=== PATIENT | male | born 1980 | race Caucasian/White ===

== ENCOUNTER 2019-12-26 00:22 | Inpatient (IN) | payer BC, MEDICARE, SELFPAY ==
[~2019-12-26] VITALS: Ht 175.3 cm; Wt 89.5 kg
[2019-12-26 01:28] LABS: HEMATOCRIT 48.9 % (42.0-52.0); HEMOGLOBIN 16.4 g/dl (13.5-17.5); MEAN CORPUSCULAR HEMOGLOBIN 31.2 pg (27.0-33.0); MEAN CORPUSCULAR HGB CONC 33.5 g/dl (32.0-36.5); MEAN CORPUSCULAR VOLUME 93.1 fl (80.0-96.0); PLATELET COUNT, AUTOMATED 157 10^3/uL (150-450); RED BLOOD COUNT 5.25 10^6/uL (4.30-6.10); WHITE BLOOD COUNT 12.1 10^3/uL (4.0-10.0)
[2019-12-26 01:43] LABS: AMPHETAMINES LEVEL URINE NEGATIVE (NEGATIVE); BARBITURATES URINE NEGATIVE (NEGATIVE); BENZODIAZEPINES URINE NEGATIVE (NEGATIVE); CANNABINOIDS URINE NEGATIVE (NEGATIVE); COCAINE METABOLITE URINE NEGATIVE (NEGATIVE); METHADONE URINE NEGATIVE (NEGATIVE); OPIATES URINE NEGATIVE (NEGATIVE); PHENCYCLIDINE URINE NEGATIVE (NEGATIVE)
[2019-12-26 02:03] LABS: ACETAMINOPHEN LEVEL < 2.0 UG/ML (10.0-30.0); ALBUMIN 3.9 GM/DL (3.2-5.2); ALT/SGPT 69 U/L (12-78); BILIRUBIN,DIRECT 0.1 MG/DL (0.0-0.2); BILIRUBIN,TOTAL 0.3 MG/DL (0.2-1.0); BLOOD UREA NITROGEN 9 MG/DL (7-18); CALCIUM LEVEL 8.3 MG/DL (8.5-10.1); CARBON DIOXIDE LEVEL 23 MEQ/L (21-32); CHLORIDE LEVEL 111 MEQ/L (98-107); CREATININE FOR GFR 0.78 MG/DL (0.70-1.30); ETHYL ALCOHOL (ETHANOL) 0.261 % (0.000-0.010); GLOMERULAR FILTRATION RATE > 60.0 (>60); GLUCOSE, FASTING 98 MG/DL (70-100); POTASSIUM SERUM 3.7 MEQ/L (3.5-5.1); SALICYLATE LEVEL 5.1 MG/DL (5.0-30.0); SODIUM LEVEL 142 MEQ/L (136-145); THYROID STIMULATING HORMONE 0.544 uIU/ML (0.358-3.740); TOTAL PROTEIN 7.6 GM/DL (6.4-8.2)
[2019-12-26] MEDS: LORazepam 2 MG TAB PO PRN ×2 (08:27→18:09)
[2019-12-26] MEDS ORDERED: ACETAMINOPHEN 325 MG TAB PO ONE (08:45)
[2019-12-26] MEDS ORDERED: MULTIVITAMINS/MINERALS THERAP 1 TAB PO SCH (09:00)
[2019-12-26] MEDS ORDERED: THIAMINE 100 MG TAB PO SCH ×2 (09:00→15:40)
[2019-12-26] MEDS ORDERED: FOLIC ACID 1 MG TAB PO SCH (09:00)
[2019-12-26] MEDS ORDERED: NAPR-885 PO (14:10)
[2019-12-26] MEDS ORDERED: FLUO10CA15 PO (14:10)
[2019-12-26] MEDS ORDERED: IBUPROFEN 400 MG TAB PO PRN (15:30)
[2019-12-26] MEDS ORDERED: OLANZapine ORAL DISINTEGRATING TAB 5MG PO PRN (15:30)
[2019-12-26] MEDS ORDERED: traZODone 50 MG TAB PO PRN (15:30)
[2019-12-26] MEDS ORDERED: NICOTINE 21MG/24HR 1 EA TRANSDERMAL TD ONE (15:30)
[2019-12-26] MEDS ORDERED: MOM 30ML SUSPENSION UDC PO PRN (15:30)
[2019-12-26] MEDS ORDERED: MAALOX 30 ML SUSP *UDC PO PRN (15:30)
[2019-12-26 17:39] VITALS: BP 148/77
[2019-12-26 17:44] VITALS: BP 148/77
[2019-12-26] MEDS: THIAMINE 100 MG TAB PO SCH (20:03)
[2019-12-26 20:38] VITALS: BP 150/94
[2019-12-27] VITALS (7 sets, daily range): BP systolic 110–174; BP diastolic 71–92
[2019-12-27] MEDS: THIAMINE 100 MG TAB PO SCH ×2 (08:11→21:14)
[2019-12-27] MEDS: FOLIC ACID 1 MG TAB PO SCH (08:11)
[2019-12-27] MEDS: MULTIVITAMINS/MINERALS THERAP 1 TAB PO SCH (08:11)
[2019-12-27] MEDS: NICOTINE 21MG/24HR 1 EA TRANSDERMAL TD SCH (08:51)
[2019-12-27] MEDS: LORazepam 2 MG TAB PO PRN ×3 (08:51→17:52)
[2019-12-27] MEDS ORDERED: OXcarbazepine 300MG 5ML SUSP ORAL SYRINGE *DRAW UP EXACT DOSE PO SCH (10:15)
[2019-12-27] MEDS: FLUoxetine 10 MG CAP PO SCH (11:43)
[2019-12-27] MEDS: NALTREXONE 50 MG TAB PO SCH (11:43)
--- NOTE | 2019-12-27 16:35 | HPEPDOC ---
General Date of Admission Dec 26, 2019 at 15:20 Date of Service: Dec 27, 2019 Chief Complaint The patient is a 39-year-old male admitted with a reason for visit of Unspecified Psychotic Disorder. Source: Patient Exam Limitations: No limitations Associated Symptoms: Denies Symptoms History of Present Illness 39-year-old male with past medical history of anxiety presents to [facility] for evaluation of an unspecified chronic disorder with hallucinations. Hospitalist called for medical clearance prior to admission. Patient reports that he is feeling well. He's had no recent fevers, chills, shortness of breath, chest pain, abdominal pain, nausea, vomiting. He currently takes only fluoxetine for his anxiety and naproxen as needed for chronic back pain. Denies any recent illnesses or sick contacts or travel history. Patient is a heavy drinker averaging 6-12 beers per day. He also smokes very heavily 2 packs per day for the past 17 years. Patient knows that he is in the psychiatric cueva for evaluation of hallucinations. She has no other complaints at this time. Home Medications Scheduled Fluoxetine Hcl (Fluoxetine HCl) 10 Mg Capsule, 10 MG PO DAILY, (Reported) PATIENT STATES HE'S STILL TAKING- HASNT FILLED SINCE 03/06/2019 Scheduled PRN Naproxen (Naproxen) 500 Mg Tablet, 500 MG PO BID PRN for PAIN, (Reported) Allergies Coded Allergies: No Known Allergies (Unverified , 12/26/19) Past Medical History Medical History Anxiety Alcohol use disorder Nicotine dependence Chronic back pain Surgical History Multiple orthopedic surgeries on his back, wrist, forearms Family History Father is a diabetic Mother has anxiety and hypertension Social History * Smoker: current smoker, greater than 1 pack/day (2 packs per day for the past 17 years), cigarettes Alcohol: heavy (6-12 beers per night) Drugs: denies Recent Travel/Sick Contacts: Denies: Recent travel, Recent sick contacts Psychosocial History: Anxiety, Suicidal thoughts Was living independently in his apartment. Currently living with his parents. 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 Dyspnea, Lt Headedness Gastrointestinal: Denies: Nausea, Vomiting, Abdominal Pain, Diarrhea Genitourinary: Denies: Dysuria, Frequency, Incontinence, Retention Hematologic: Denies: Bruising, Bleeding Excessively Musculoskeletal: Denies: Neck Pain, Back Pain, Joint Pain, Muscle Pain, Spasms Neurological: Denies: Weakness, Numbness, Change in speech, Confusion Psych: Reports: Mood Normal; Denies: Depression, Memory Issues Physical Examination General Exam: Positive: Alert, Cooperative, No Acute Distress Eye Exam: Positive: PERRLA, Conjunctiva & lids normal, EOMI, Sclera icteric ENT Exam: Positive: Atraumatic, Mucous membr. moist/pink, Pharynx Normal Neck Exam: Positive: Supple; Negative: JVD, thyromegaly Chest Exam: Positive: Clear to auscultation, Normal air movement; Negative: Rales, Rhonchi, Wheezing Heart Exam: Positive: Rate Normal, Regular Rhythm, Normal S1, Normal S2; Negative: Gallops, Murmurs Abdomen Exam: Positive: Normal bowel sounds, Soft; Negative: Tenderness, Hepatospenomegaly Extremity Exam: Positive: Normal pulses; Negative: Clubbing, Cyanosis, Edema Skin Exam: Positive: Nl turgor and temperature; Negative: Rash, Breakdown Neuro Exam: Positive: Normal Gait, Normal Speech, Strength at 5/5 X4 ext, Normal Tone, Sensation Intact Psych Exam: Positive: Mental status NL, Mood NL Vital Signs Vital Signs Date Time Temp Pulse Resp B/P (MAP) Pulse Ox O2 Delivery O2 Flow Rate FiO2 12/27/19 13:21 100 174/92 12/27/19 06:43 98.3 18 99 Room Air 12/26/19 04:00 Assessment/Plan 39-year-old male was admitted to the inpatient psych unit for evaluation of hallucinations and unspecified psychotic disorder. Currently patient feels well and has no complaints at this time. Laboratory work was reviewed and shows no g ross abnormalities. Patient is however hypertensive which may be related to possible withdrawal-like symptoms. Patient appears calm at this time this last drink being approximate 48 hours prior. Patient will need to be monitored closely for the next 3 days for withdrawal-like symptoms. Once patient is out of the withdrawal window, if he is still hypertensive, patient may benefit from starting a blood pressure medication. Currently, patient has no contraindications to psychiatric treatment at this time medically. Please reconsult hospitalist service as needed if you have any questions. Thank you for allowing me to see your patient. Plan / VTE VTE Prophylaxis Ordered?: No VTE Exclusion Mechanical Proph: Low Risk for VTE VTE Exclusion Pharmacological: At Low Risk for VTE Plan Plan Hypertension Patient is hypertensive for most of the day. May be related to possible alcohol withdrawal symptoms although he appeared to be very calm during the interview. Withdrawal window is complete, we will reassess the need for antihypertensive agent. - Monitor for withdrawal symptoms - Will hold off on antihypertensive until withdrawal window is closed Alcohol dependence and abuse Patient drinks significant amount of alcohol. Denies any history of seizures in the past. - Continue with alcohol withdrawal protocol for the next 72 hours - Lorazepam 2 mg every 2 hours as needed for withdrawal symptoms - The patient requires more Ativan than is prescribed at this time, please reconsult hospitalist service for further intervention Nicotine dependence Patient is a heavy smoker. Requesting nicotine patches - Nicotine 21 mg patch when necessary Please reconsult hospitalist service as needed. Thank you so much for this most interesting consult. COURTNEY FRAZIER MD Dec 27, 2019 16:35
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
[2019-12-27] MEDS: OXcarbazepine 150 MG TAB PO SCH (21:22)
[2019-12-28 06:00] VITALS: BP 154/88
[2019-12-28] MEDS: NALTREXONE 50 MG TAB PO SCH (08:13)
[2019-12-28] MEDS: MULTIVITAMINS/MINERALS THERAP 1 TAB PO SCH (08:13)
[2019-12-28] MEDS: THIAMINE 100 MG TAB PO SCH (08:13)
[2019-12-28] MEDS: FOLIC ACID 1 MG TAB PO SCH (08:14)
[2019-12-28] MEDS: NICOTINE 21MG/24HR 1 EA TRANSDERMAL TD SCH (08:14)
[2019-12-28] MEDS: FLUoxetine 10 MG CAP PO SCH (08:14)
[2019-12-28] MEDS: OXcarbazepine 150 MG TAB PO SCH (08:14)
--- NOTE | 2019-12-28 09:09 | MHIPNPDOC ---
[facility] Progress Note Progress Note DATE OF SERVICE: 12/28/19 HISTORY: . VITAL SIGNS: See below. NEW TEST RESULTS: . CURRENT MEDICATIONS: See below. MENTAL STATUS EXAMINATION: Patient is a -year old male, who is . Speech: Is . Language skills are . Thought processes including: . Thought content: . Abstract reasoning, and computation: . Description of associ ations: . Description of abnormal or psychotic thoughts: . Judgment: . Insight: [very limited, good, fair. poor]. Orientation: . Recent and remote memory: . Attention span and concentration: . Language: . Fund of knowledge: . Mood: . Affect: . DIAGNOSES: 1. . 2. . 3. . ASSESSMENT: MANAGEMENT PLAN: . TIME SPENT: minutes. Vital Signs Vital Signs Date Time Temp Pulse Resp B/P (MAP) Pulse Ox O2 Delivery O2 Flow Rate FiO2 12/28/19 06:00 98.3 86 14 154/88 (110) 98 Room Air 12/26/19 04:00 Current Medications Current Medications Medications (Trade) Dose Ordered Sig/Desirae Route PRN Reason Start Time Stop Time Status Last Admin Dose Admin Al Hydrox/Mg Hydrox/Simethicone (Mylanta) 30 ml Q4HP PRN PO HEARTBURN/INDIGESTION 12/26/19 15:30 Fluoxetine HCl (PROzac) 10 mg DAILY PO 12/27/19 10:15 12/28/19 08:14 Folic Acid (Folic Acid) 1 mg DAILY PO 12/26/19 09:00 12/26/19 20:43 DC 12/26/19 08:27 Folic Acid (Folic Acid) 1 mg DAILY PO 12/27/19 09:00 12/28/19 08:14 Home Med (Med Rec Complete!) ASDIRECTED XX 12/26/19 14:15 12/26/19 14:11 DC Ibuprofen (Advil) 400 mg Q6HP PRN PO PAIN 12/26/19 15:30 Lorazepam (Ativan) 2 mg ASDIRECTED PRN PO SEE PROTOCOL 12/26/19 08:00 12/26/19 20:43 DC 12/26/19 18:09 Lorazepam (Ativan) 2 mg ASDIRECTED PRN PO SEE PROTOCOL 12/26/19 15:45 12/27/19 17:52 Magnesium Hydroxide (Milk Of Magnesia) 30 ml DAILYPRN PRN PO CONSTIPATION 12/26/19 15:30 Multivitamins (Theragram-M) 1 tab DAILY PO 12/26/19 09:00 12/26/19 20:43 DC 12/26/19 08:27 Multivitamins (Theragram-M) 1 tab DAILY PO 12/27/19 09:00 12/28/19 08:13 Naltrexone HCl (Revia) 50 mg DAILY PO 12/27/19 10:15 12/28/19 08:13 Nicotine (Nicoderm Cq 21mg) 1 patch DAILY TD 12/27/19 09:00 12/28/19 08:14 Olanzapine (ZyPREXA ZYDIS) 5 mg Q6HP PRN PO AGITATION 12/26/19 15:30 Oxcarbazepine (Trileptal Oral Susp) 75 mg BID PO 12/27/19 10:15 12/27/19 11:20 DC Oxcarbazepine (Trileptal) 75 mg BID PO 12/27/19 11:20 12/28/19 08:14 Thiamine HCl (Thiamine HCl) 100 mg BID PO 12/26/19 09:00 12/26/19 20:43 DC 12/26/19 08:27 Thiamine HCl (Thiamine HCl) 100 mg BID PO 12/26/19 15:40 12/26/19 15:40 DC Thiamine HCl (Thiamine HCl) 100 mg BID PO 12/26/19 21:00 12/28/19 21:01 12/28/19 08:13 Trazodone HCl (Desyrel) 50 mg QHSP PRN PO INSOMNIA 12/26/19 15:30 Allergies Coded Allergies: No Known Allergies (Unverified , 12/26/19) SMITA KUMAR DO Dec 28, 2019 09:09
[2019-12-28] MEDS ORDERED: NALT50TA4 PO (10:36)
[2019-12-28] MEDS ORDERED: FLUO10CA15 PO (10:36)
[2019-12-28] MEDS ORDERED: TRAZ-252 PO (10:36)
[2019-12-28] MEDS ORDERED: NICO21PAT TD (10:36)
[2019-12-28] MEDS ORDERED: OXCA150T21 PO ×2 (10:36→12:47)
[2019-12-28 11:00] VITALS: BP 157/82
[2019-12-28] MEDS ORDERED: clonazePAM 1 MG TAB PO ONE (11:00)
[2019-12-28] MEDS ORDERED: OXcarbazepine 150 MG TAB PO SCH (21:00)
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
== END 2019-12-28 14:25 | disposition home or self-care (01) | DRG 897 ==
LOC: M ED 00:22 → M ED INP 15:20 → M PSY 16:23
PROVIDERS: ADMIT Psychiatry & Neurology Addiction Medicine; ATTEND Psychiatry & Neurology Addiction Medicine
DX: F10.251 Alcohol dependence with alcohol-induced psychotic disorder with hallucinations (principal); F43.20 Adjustment disorder, unspecified; F17.210 Nicotine dependence, cigarettes, uncomplicated; I10 Essential (primary) hypertension; Z87.820 Personal history of traumatic brain injury; Z79.899 Other long term (current) drug therapy

== ENCOUNTER 2022-03-20 04:02 | Inpatient (IN) | payer MEDICARE ==
[~2022-03-20] VITALS: Ht 170.2 cm; Wt 90.1 kg
[~2022-03-20 04:02] MED LIST: FLUO10CA18 PO; NALT50TA4 PO; NAPR-885 PO; NICO21PAT TD; OXCA150T21 PO; TRAZ-252 PO
[2022-03-20 04:34] LABS: HEMATOCRIT 45.8 % (42.0-52.0); HEMOGLOBIN 15.2 g/dl (13.5-17.5); MEAN CORPUSCULAR HEMOGLOBIN 31.1 pg (27.0-33.0); MEAN CORPUSCULAR HGB CONC 33.2 g/dl (32.0-36.5); MEAN CORPUSCULAR VOLUME 93.9 fl (80.0-96.0); PLATELET COUNT, AUTOMATED 161 10^3/uL (150-450); RED BLOOD COUNT 4.88 10^6/uL (4.30-6.10)
[2022-03-20 05:00] LABS: AMPHETAMINES LEVEL URINE NEGATIVE (NEGATIVE); BARBITURATES URINE NEGATIVE (NEGATIVE); BENZODIAZEPINES URINE NEGATIVE (NEGATIVE); CANNABINOIDS URINE NEGATIVE (NEGATIVE); COCAINE METABOLITE URINE NEGATIVE (NEGATIVE); METHADONE URINE NEGATIVE (NEGATIVE); OPIATES URINE NEGATIVE (NEGATIVE); PHENCYCLIDINE URINE NEGATIVE (NEGATIVE)
[2022-03-20 05:06] LABS: RSV AMPLIFICATION NEGATIVE (NEGATIVE)
[2022-03-20 05:15] LABS: ACETAMINOPHEN LEVEL < 2.0 UG/ML (10.0-30.0); ALBUMIN 3.9 GM/DL (3.2-5.2); ALT/SGPT 18 U/L (12-78); BILIRUBIN,DIRECT 0.1 MG/DL (0.0-0.2); BILIRUBIN,TOTAL 0.5 MG/DL (0.2-1.0); BLOOD UREA NITROGEN 8 MG/DL (7-18); CALCIUM LEVEL 9.1 MG/DL (8.5-10.1); CARBON DIOXIDE LEVEL 25 MEQ/L (21-32); CHLORIDE LEVEL 108 MEQ/L (98-107); CREATININE FOR GFR 0.97 MG/DL (0.70-1.30); ETHYL ALCOHOL (ETHANOL) < 0.003 % (0.000-0.010); GLOMERULAR FILTRATION RATE > 60.0 (>60); GLUCOSE, FASTING 99 MG/DL (70-100); POTASSIUM SERUM 3.3 MEQ/L (3.5-5.1); SALICYLATE LEVEL 6.6 MG/DL (5.0-30.0); SODIUM LEVEL 141 MEQ/L (136-145); THYROID STIMULATING HORMONE 0.862 uIU/ML (0.358-3.740); TOTAL PROTEIN 7.2 GM/DL (6.4-8.2)
[2022-03-20] MEDS ORDERED: POTASSIUM CHLORIDE 10MEQ SR TABLET PO ONE (12:00)
[2022-03-20] MEDS ORDERED: LORazepam 2 MG TAB PO PRN (12:00)
[2022-03-20] MEDS ORDERED: NICOTINE 21MG/24HR 1 EA TRANSDERMAL TD ONE (12:20)
[2022-03-20] MEDS ORDERED: NALT50TA4 PO (12:27)
[2022-03-20] MEDS ORDERED: DESM0.1T2 PO (12:27)
[2022-03-20] MEDS ORDERED: AMLO1TAB24 PO (12:27)
[2022-03-20] MEDS ORDERED: patient comment (12:27)
[2022-03-20] MEDS ORDERED: OXCA150T21 PO (12:27)
[2022-03-20] MEDS ORDERED: TRAZ-252 PO (12:27)
[2022-03-20] MEDS ORDERED: NICO21DI38 TD (12:27)
[2022-03-20] MEDS ORDERED: HOME MED LIST COMPLETE! XX SCH (12:30)
[2022-03-20 13:00] LABS: INR 0.92; PROTHROMBIN TIME 12.8 SECONDS (12.7-14.5)
[2022-03-20 13:01] LABS: PARTIAL THROMBOPLASTIN TIME 25.7 SECONDS (25.9-37.0)
[2022-03-20] MEDS: THIAMINE 100 MG TAB PO SCH ×2 (13:41→21:30)
[2022-03-20] MEDS: MULTIVITAMINS/MINERALS THERAP 1 TAB PO SCH (13:41)
[2022-03-20] MEDS: FOLIC ACID 1 MG TAB PO SCH (13:42)
[2022-03-20] MEDS: ENOXAPARIN 40MG/0.4ML SYRINGE (J1650 PER 10MG) SC SCH (13:45)
[2022-03-20] MEDS: NS 1,000 ML IV SCH ×2 (17:15→20:00)
[2022-03-20 17:16] VITALS: BP 128/62
[2022-03-20 20:28] VITALS: BP 131/83
[2022-03-21] MEDS: PHENYTOIN ER 100 MG CAP PO SCH ×4 (01:03→22:14)
[2022-03-21] MEDS: NS 1,000 ML IV SCH ×3 (01:19→22:16)
[2022-03-21 01:20] VITALS: BP 130/83
[2022-03-21 05:36] VITALS: BP 120/80
[2022-03-21 06:00] VITALS: BP 120/80
[2022-03-21 06:27] LABS: HEMATOCRIT 45.7 % (42.0-52.0); HEMOGLOBIN 14.8 g/dl (13.5-17.5); MEAN CORPUSCULAR HEMOGLOBIN 31.7 pg (27.0-33.0); MEAN CORPUSCULAR HGB CONC 32.4 g/dl (32.0-36.5); MEAN CORPUSCULAR VOLUME 97.9 fl (80.0-96.0); PLATELET COUNT, AUTOMATED 164 10^3/uL (150-450); RED BLOOD COUNT 4.67 10^6/uL (4.30-6.10)
[2022-03-21 06:59] LABS: ALBUMIN 3.2 GM/DL (3.2-5.2); ALT/SGPT 15 U/L (12-78); BILIRUBIN,TOTAL 0.2 MG/DL (0.2-1.0); BLOOD UREA NITROGEN 11 MG/DL (7-18); CALCIUM LEVEL 8.4 MG/DL (8.5-10.1); CARBON DIOXIDE LEVEL 26 MEQ/L (21-32); CHLORIDE LEVEL 115 MEQ/L (98-107); CREATININE FOR GFR 0.77 MG/DL (0.70-1.30); GLOMERULAR FILTRATION RATE > 60.0 (>60); GLUCOSE, FASTING 119 MG/DL (70-100); POTASSIUM SERUM 4.1 MEQ/L (3.5-5.1); SODIUM LEVEL 144 MEQ/L (136-145); TOTAL PROTEIN 5.9 GM/DL (6.4-8.2)
[2022-03-21] MEDS: NICOTINE 21MG/24HR 1 EA TRANSDERMAL TD SCH (09:00)
[2022-03-21] MEDS: MULTIVITAMINS/MINERALS THERAP 1 TAB PO SCH (09:37)
[2022-03-21] MEDS: THIAMINE 100 MG TAB PO SCH ×2 (09:37→20:20)
[2022-03-21] MEDS: FOLIC ACID 1 MG TAB PO SCH (09:37)
[2022-03-21] MEDS: ENOXAPARIN 40MG/0.4ML SYRINGE (J1650 PER 10MG) SC SCH (09:37)
[2022-03-21 14:00] VITALS: BP 137/86
[2022-03-21 20:00] VITALS: BP 141/81
[2022-03-21 22:00] VITALS: BP 141/81
[2022-03-22 06:00] VITALS: BP 122/74
[2022-03-22 06:28] VITALS: BP 122/74
[2022-03-22 06:41] LABS: HEMATOCRIT 45.1 % (42.0-52.0); HEMOGLOBIN 14.6 g/dl (13.5-17.5); MEAN CORPUSCULAR HEMOGLOBIN 32.1 pg (27.0-33.0); MEAN CORPUSCULAR HGB CONC 32.4 g/dl (32.0-36.5); MEAN CORPUSCULAR VOLUME 99.1 fl (80.0-96.0); PLATELET COUNT, AUTOMATED 197 10^3/uL (150-450); RED BLOOD COUNT 4.55 10^6/uL (4.30-6.10); WHITE BLOOD COUNT 8.2 10^3/uL (4.0-10.0)
[2022-03-22] MEDS: PHENYTOIN ER 100 MG CAP PO SCH (06:51)
[2022-03-22 07:07] LABS: ALBUMIN 3.5 GM/DL (3.2-5.2); ALT/SGPT 18 U/L (12-78); BILIRUBIN,TOTAL 0.3 MG/DL (0.2-1.0); BLOOD UREA NITROGEN 9 MG/DL (7-18); CARBON DIOXIDE LEVEL 29 MEQ/L (21-32); CHLORIDE LEVEL 111 MEQ/L (98-107); CREATININE FOR GFR 0.83 MG/DL (0.70-1.30); GLOMERULAR FILTRATION RATE > 60.0 (>60); GLUCOSE, FASTING 82 MG/DL (70-100); POTASSIUM SERUM 4.5 MEQ/L (3.5-5.1); SODIUM LEVEL 144 MEQ/L (136-145); TOTAL PROTEIN 6.6 GM/DL (6.4-8.2)
[2022-03-22] MEDS: THIAMINE 100 MG TAB PO SCH (08:28)
[2022-03-22] MEDS: ENOXAPARIN 40MG/0.4ML SYRINGE (J1650 PER 10MG) SC SCH (08:28)
[2022-03-22] MEDS: FOLIC ACID 1 MG TAB PO SCH (08:28)
[2022-03-22] MEDS: MULTIVITAMINS/MINERALS THERAP 1 TAB PO SCH (08:29)
[2022-03-22] MEDS: NICOTINE 21MG/24HR 1 EA TRANSDERMAL TD SCH (08:30)
[2022-03-22] MEDS ORDERED: VITMTA PO (09:59)
[2022-03-22] MEDS ORDERED: FOLI1TAB11 PO (09:59)
[2022-03-22] MEDS ORDERED: DILA100C PO (09:59)
[2022-03-22] MEDS ORDERED: THIA100TA PO (10:00)
== END 2022-03-22 10:51 | disposition home or self-care (01) | DRG 897 ==
LOC: M ED 04:02 → M ED INP 11:59 → ENRESERV 13:33 → M MSPAV 15:30
PROVIDERS: ADMIT Internal Medicine; ATTEND Internal Medicine
DX: F10.151 Alcohol abuse with alcohol-induced psychotic disorder with hallucinations (principal); R45.851 Suicidal ideations; M54.59 Other low back pain; F17.200 Nicotine dependence, unspecified, uncomplicated; F41.9 Anxiety disorder, unspecified; Z79.899 Other long term (current) drug therapy

== ENCOUNTER 2022-04-11 16:19 | Emergency (ER) | payer MEDICARE ==
[~2022-04-11] VITALS: Ht 175.3 cm; Wt 90.9 kg
[2022-04-11] MEDS: MULTIVITAMINS/MINERALS THERAP 1 TAB PO SCH (09:00)
[2022-04-11] MEDS: FOLIC ACID 1MG TAB PO SCH (09:00)
[~2022-04-11 16:19] MED LIST changes: +AMLO1TAB24 PO; +DESM0.1T2 PO; +DILA100C PO; +FOLI1TAB11 PO; +NICO21DI38 TD; +THIA100TA PO; +VITMTA PO; +patient comment
[2022-04-11] MEDS ORDERED: LORazepam 2 MG TAB PO PRN (16:40)
[2022-04-11 17:07] LABS: HEMATOCRIT 49.2 % (42.0-52.0); HEMOGLOBIN 16.8 g/dl (13.5-17.5); MEAN CORPUSCULAR HEMOGLOBIN 31.5 pg (27.0-33.0); MEAN CORPUSCULAR HGB CONC 34.1 g/dl (32.0-36.5); MEAN CORPUSCULAR VOLUME 92.1 fl (80.0-96.0); PLATELET COUNT, AUTOMATED 234 10^3/uL (150-450); RED BLOOD COUNT 5.34 10^6/uL (4.30-6.10); WHITE BLOOD COUNT 10.4 10^3/uL (4.0-10.0)
[2022-04-11 17:42] LABS: AMPHETAMINES LEVEL URINE NEGATIVE (NEGATIVE); BARBITURATES URINE NEGATIVE (NEGATIVE); BENZODIAZEPINES URINE NEGATIVE (NEGATIVE); CANNABINOIDS URINE NEGATIVE (NEGATIVE); COCAINE METABOLITE URINE NEGATIVE (NEGATIVE); METHADONE URINE NEGATIVE (NEGATIVE); OPIATES URINE NEGATIVE (NEGATIVE); PHENCYCLIDINE URINE NEGATIVE (NEGATIVE)
[2022-04-11 17:55] LABS: ACETAMINOPHEN LEVEL < 2.0 UG/ML (10.0-30.0); ALBUMIN 3.9 GM/DL (3.2-5.2); ALT/SGPT 24 U/L (12-78); BILIRUBIN,DIRECT < 0.1 MG/DL (0.0-0.2); BILIRUBIN,TOTAL 0.1 MG/DL (0.2-1.0); BLOOD UREA NITROGEN 6 MG/DL (7-18); CARBON DIOXIDE LEVEL 24 MEQ/L (21-32); CHLORIDE LEVEL 107 MEQ/L (98-107); CREATININE FOR GFR 0.75 MG/DL (0.70-1.30); ETHYL ALCOHOL (ETHANOL) 0.294 % (0.000-0.010); GLOMERULAR FILTRATION RATE > 60.0 (>60); GLUCOSE, FASTING 92 MG/DL (70-100); POTASSIUM SERUM 4.3 MEQ/L (3.5-5.1); SALICYLATE LEVEL 6.2 MG/DL (5.0-30.0); SODIUM LEVEL 140 MEQ/L (136-145); THYROID STIMULATING HORMONE 0.294 uIU/ML (0.358-3.740); TOTAL PROTEIN 7.6 GM/DL (6.4-8.2)
[2022-04-11 18:07] LABS: PHENYTOIN (DILANTIN) 0.5 UG/ML (10.0-20.0)
[2022-04-11] MEDS ORDERED: NICOTINE 21MG/24HR 1 EA TRANSDERMAL TD ONE (18:55)
[2022-04-11] MEDS ORDERED: OLANZapine ORAL DISINTEGRATING TAB 5MG PO ONE (18:55)
[2022-04-11 20:09] LABS: RSV AMPLIFICATION NEGATIVE (NEGATIVE)
[2022-04-11] MEDS: THIAMINE 100 MG TAB PO SCH (21:00)
[2022-04-11] MEDS ORDERED: HOME MED LIST COMPLETE! XX SCH (23:30)
[2022-04-12] MEDS ORDERED: PHEN100C PO (00:09)
[2022-04-12 08:42] VITALS: BP 173/80
[2022-04-12] MEDS: MULTIVITAMINS/MINERALS THERAP 1 TAB PO SCH (08:56)
[2022-04-12] MEDS: FOLIC ACID 1MG TAB PO SCH (08:56)
[2022-04-12] MEDS: THIAMINE 100 MG TAB PO SCH (08:56)
[2022-04-12] MEDS ORDERED: OXcarbazepine 150 MG TAB PO SCH (09:00)
[2022-04-12] MEDS ORDERED: PHENYTOIN ER 100 MG CAP PO ONE (09:00)
== END 2022-04-12 09:33 | disposition home or self-care (01) ==
LOC: M ED 16:19
DX: F10.929 Alcohol use, unspecified with intoxication, unspecified (principal); G89.29 Other chronic pain; F17.200 Nicotine dependence, unspecified, uncomplicated; Z79.899 Other long term (current) drug therapy; Z87.820 Personal history of traumatic brain injury; Z98.890 Other specified postprocedural states; Z81.8 Family history of other mental and behavioral disorders; Z82.49 Family history of ischemic heart disease and other diseases of the circulatory system

== ENCOUNTER 2022-10-14 19:10 | Emergency (ER) | payer MEDICARE ==
[~2022-10-14] VITALS: Ht 172.7 cm; Wt 90.9 kg
[~2022-10-14 19:10] MED LIST changes: +PHEN100C PO
[2022-10-14 20:06] LABS: HEMATOCRIT 52.9 % (42.0-52.0); HEMOGLOBIN 17.9 g/dl (13.5-17.5); MEAN CORPUSCULAR HGB CONC 33.8 g/dl (32.0-36.5); MEAN CORPUSCULAR VOLUME 91.5 fl (80.0-96.0); PLATELET COUNT, AUTOMATED 141 10^3/uL (150-450); RED BLOOD COUNT 5.78 10^6/uL (4.30-6.10); WHITE BLOOD COUNT 13.1 10^3/uL (4.0-10.0)
[2022-10-14 20:29] LABS: BARBITURATES URINE NEGATIVE (NEGATIVE); COCAINE METABOLITE URINE NEGATIVE (NEGATIVE)
[2022-10-14 20:30] LABS: AMPHETAMINES LEVEL URINE NEGATIVE (NEGATIVE); BENZODIAZEPINES URINE NEGATIVE (NEGATIVE); CANNABINOIDS URINE NEGATIVE (NEGATIVE); METHADONE URINE NEGATIVE (NEGATIVE); OPIATES URINE NEGATIVE (NEGATIVE); PHENCYCLIDINE URINE NEGATIVE (NEGATIVE)
[2022-10-14 20:32] LABS: ETHYL ALCOHOL (ETHANOL) 0.238 % (0.000-0.010)
[2022-10-14 20:33] LABS: ACETAMINOPHEN LEVEL < 2.0 UG/ML (10.0-20.0)
[2022-10-14 20:34] LABS: SALICYLATE LEVEL < 3.0 MG/DL (<30)
[2022-10-14 20:35] LABS: THYROID STIMULATING HORMONE 0.752 uIU/ML (0.55-4.78)
[2022-10-14] MEDS ORDERED: NICOTINE 21MG/24HR 1 EA TRANSDERMAL TD ONE (20:40)
[2022-10-14 20:57] LABS: ALBUMIN 3.6 G/DL (3.2-5.2); ALKALINE PHOSPHATASE 91 U/L (46-116); ALT/SGPT 28 U/L (7.0-40); AST/SGOT 43 U/L (<34); BILIRUBIN,DIRECT < 0.1 MG/DL (<0.4); BILIRUBIN,TOTAL 0.2 MG/DL (0.3-1.2); BLOOD UREA NITROGEN 6 MG/DL (9-23); CALCIUM LEVEL 8.8 MG/DL (8.5-10.1); CARBON DIOXIDE LEVEL 25 MMOL/L (20-31); CHLORIDE LEVEL 102 MMOL/L (98-107); CREATININE FOR GFR 0.72 MG/DL (0.70-1.30); GLOMERULAR FILTRATION RATE > 60.0 (>60); GLUCOSE, FASTING 103 MG/DL (60-100); POTASSIUM SERUM 5.4 MMOL/L (3.5-5.1); SODIUM LEVEL 136 MMOL/L (136-145); TOTAL PROTEIN 7.5 G/DL (5.7-8.2)
[2022-10-14] MEDS ORDERED: FOLI1TAB11 PO (23:20)
[2022-10-14] MEDS ORDERED: LEXA1TAB2 PO (23:20)
[2022-10-14] MEDS ORDERED: PHEN100C PO (23:20)
[2022-10-14] MEDS ORDERED: HOME MED LIST COMPLETE! XX SCH (23:25)
[2022-10-15] MEDS ORDERED: OXAZEPAM 15MG CAP PO ONE
[2022-10-15 08:04] VITALS: BP 128/72
== END 2022-10-15 08:06 | disposition home or self-care (01) ==
LOC: M ED 19:10
DX: F10.129 Alcohol abuse with intoxication, unspecified (principal); F32.A Depression, unspecified; F17.210 Nicotine dependence, cigarettes, uncomplicated; Z79.899 Other long term (current) drug therapy; Z98.890 Other specified postprocedural states

== ENCOUNTER 2023-02-22 21:59 | Emergency (ER) | payer MEDICARE ==
[~2023-02-22] VITALS: Ht 170.2 cm; Wt 113.0 kg
[~2023-02-22 21:59] MED LIST changes: +DESM0.1T16 PO; -DESM0.1T2 PO; +LEXA1TAB2 PO
[2023-02-22 23:25] LABS: HEMATOCRIT 45.7 % (42.0-52.0); HEMOGLOBIN 15.5 g/dl (13.5-17.5); MEAN CORPUSCULAR HEMOGLOBIN 32.2 pg (27.0-33.0); MEAN CORPUSCULAR HGB CONC 33.9 g/dl (32.0-36.5); PLATELET COUNT, AUTOMATED 185 10^3/uL (150-450); RED BLOOD COUNT 4.81 10^6/uL (4.30-6.10); WHITE BLOOD COUNT 7.4 10^3/uL (4.0-10.0)
[2023-02-22 23:49] LABS: ETHYL ALCOHOL (ETHANOL) 0.229 % (0.000-0.010)
[2023-02-22 23:50] LABS: ACETAMINOPHEN LEVEL < 2.0 UG/ML (10.0-20.0); SALICYLATE LEVEL < 3.0 MG/DL (<30)
[2023-02-22 23:57] LABS: ALBUMIN 3.6 G/DL (3.2-5.2); ALKALINE PHOSPHATASE 92 U/L (46-116); ALT/SGPT 71 U/L (7.0-40); AST/SGOT 29 U/L (<34); BILIRUBIN,DIRECT 0.1 MG/DL (<0.4); BILIRUBIN,TOTAL 0.3 MG/DL (0.3-1.2); BLOOD UREA NITROGEN < 5 MG/DL (9-23); CALCIUM LEVEL 8.3 MG/DL (8.5-10.1); CARBON DIOXIDE LEVEL 23 MMOL/L (20-31); CHLORIDE LEVEL 108 MMOL/L (98-107); CREATININE FOR GFR 0.72 MG/DL (0.70-1.30); GLOMERULAR FILTRATION RATE > 60.0 (>60); GLUCOSE, FASTING 93 MG/DL (60-100); POTASSIUM SERUM 3.7 MMOL/L (3.5-5.1); SODIUM LEVEL 140 MMOL/L (136-145); THYROID STIMULATING HORMONE 0.614 uIU/ML (0.55-4.78); TOTAL PROTEIN 6.7 G/DL (5.7-8.2)
[2023-02-23] MEDS ORDERED: amLODIPine 5 MG TAB PO SCH (09:00)
[2023-02-23] MEDS ORDERED: OXcarbazepine 150 MG TAB PO SCH (09:00)
[2023-02-23] MEDS ORDERED: PHENYTOIN ER 100 MG CAP PO SCH (09:00)
[2023-02-23] MEDS ORDERED: FOLIC ACID 1MG TAB PO SCH (09:00)
[2023-02-23] MEDS ORDERED: NAPROXEN 250 MG TAB PO PRN (09:00)
[2023-02-23] MEDS ORDERED: MULTIVITAMINS/MINERALS THERAP 1 TAB PO SCH (09:00)
[2023-02-23] MEDS ORDERED: THIAMINE 100 MG TAB PO SCH (09:00)
[2023-02-23 09:23] VITALS: BP 141/84
[2023-02-23 09:26] LABS: AMPHETAMINES LEVEL URINE NEGATIVE (NEGATIVE); BARBITURATES URINE NEGATIVE (NEGATIVE); BENZODIAZEPINES URINE NEGATIVE (NEGATIVE)
[2023-02-23 09:27] LABS: CANNABINOIDS URINE NEGATIVE (NEGATIVE); COCAINE METABOLITE URINE NEGATIVE (NEGATIVE); METHADONE URINE NEGATIVE (NEGATIVE); OPIATES URINE NEGATIVE (NEGATIVE); PHENCYCLIDINE URINE NEGATIVE (NEGATIVE)
[2023-02-23] MEDS ORDERED: LORazepam 2 MG TAB PO PRN (09:35)
[2023-02-23 10:56] VITALS: BP 137/80; TEMP 99.6; O2SAT 96
[2023-02-23] MEDS ORDERED: ESCITALOPRAM OXALATE 10 MG TAB (LEXAPRO) PO SCH (21:00)
[2023-02-24] MEDS ORDERED: FOLIC ACID 1MG TAB PO SCH (09:00)
== END 2023-02-23 11:00 | disposition home or self-care (01) ==
LOC: M ED 21:59
DX: F43.9 Reaction to severe stress, unspecified (principal); F10.129 Alcohol abuse with intoxication, unspecified; I10 Essential (primary) hypertension; F17.200 Nicotine dependence, unspecified, uncomplicated; Z79.899 Other long term (current) drug therapy

== ENCOUNTER 2023-03-03 17:17 | Emergency (ER) | payer MEDICARE ==
[~2023-03-03] VITALS: Ht 175.3 cm; Wt 90.9 kg
[2023-03-03] MEDS ORDERED: LORazepam 2 MG TAB PO PRN (17:20)
[2023-03-03 18:12] LABS: HEMATOCRIT 49.6 % (42.0-52.0); HEMOGLOBIN 16.5 g/dl (13.5-17.5); MEAN CORPUSCULAR HEMOGLOBIN 31.8 pg (27.0-33.0); MEAN CORPUSCULAR HGB CONC 33.3 g/dl (32.0-36.5); MEAN CORPUSCULAR VOLUME 95.6 fl (80.0-96.0); PLATELET COUNT, AUTOMATED 389 10^3/uL (150-450); RED BLOOD COUNT 5.19 10^6/uL (4.30-6.10); WHITE BLOOD COUNT 10.2 10^3/uL (4.0-10.0)
[2023-03-03 18:31] LABS: AMPHETAMINES LEVEL URINE NEGATIVE (NEGATIVE); BARBITURATES URINE NEGATIVE (NEGATIVE); BENZODIAZEPINES URINE NEGATIVE (NEGATIVE); PHENCYCLIDINE URINE NEGATIVE (NEGATIVE)
[2023-03-03 18:32] LABS: CANNABINOIDS URINE NEGATIVE (NEGATIVE); COCAINE METABOLITE URINE NEGATIVE (NEGATIVE); METHADONE URINE NEGATIVE (NEGATIVE); OPIATES URINE NEGATIVE (NEGATIVE)
[2023-03-03 18:34] LABS: SALICYLATE LEVEL < 3.0 MG/DL (<30)
[2023-03-03 18:35] LABS: ACETAMINOPHEN LEVEL < 2.0 UG/ML (10.0-20.0); ALBUMIN 3.6 G/DL (3.2-5.2); ALKALINE PHOSPHATASE 80 U/L (46-116); ALT/SGPT 17 U/L (7.0-40); AST/SGOT 31 U/L (<34); BILIRUBIN,DIRECT < 0.1 MG/DL (<0.4); BILIRUBIN,TOTAL < 0.2 MG/DL (0.3-1.2); BLOOD UREA NITROGEN 6 MG/DL (9-23); CALCIUM LEVEL 8.8 MG/DL (8.5-10.1); CARBON DIOXIDE LEVEL 27 MMOL/L (20-31); CHLORIDE LEVEL 105 MMOL/L (98-107); CREATININE FOR GFR 0.67 MG/DL (0.70-1.30); GLOMERULAR FILTRATION RATE > 60.0 (>60); GLUCOSE, FASTING 85 MG/DL (60-100); POTASSIUM SERUM 4.5 MMOL/L (3.5-5.1); SODIUM LEVEL 139 MMOL/L (136-145); TOTAL PROTEIN 6.8 G/DL (5.7-8.2)
[2023-03-03 19:11] LABS: ETHYL ALCOHOL (ETHANOL) 0.288 % (0.000-0.010)
[2023-03-03] MEDS ORDERED: THIAMINE 100 MG TAB PO SCH (21:00)
[2023-03-03] MEDS ORDERED: amLODIPine 5 MG TAB PO ONE (21:50)
[2023-03-03 21:53] VITALS: BP 207/107
[2023-03-04 05:30] VITALS: BP 150/74; TEMP 98.4; O2SAT 98
[2023-03-04] MEDS ORDERED: FOLIC ACID 1MG TAB PO SCH (09:00)
[2023-03-04] MEDS ORDERED: MULTIVITAMINS/MINERALS THERAP 1 TAB PO SCH (09:00)
== END 2023-03-04 06:07 | disposition home or self-care (01) ==
LOC: M ED 17:17
DX: F10.129 Alcohol abuse with intoxication, unspecified (principal); M54.9 Dorsalgia, unspecified; F17.200 Nicotine dependence, unspecified, uncomplicated; Z79.899 Other long term (current) drug therapy

== ENCOUNTER 2023-03-20 17:00 | Emergency (ER) | payer MEDICARE ==
[~2023-03-20] VITALS: Ht 175.3 cm; Wt 83.2 kg
[2023-03-20 17:05] VITALS: BP 164/93; TEMP 98.5; O2SAT 91
== END 2023-03-20 17:20 | disposition left against medical advice (07) ==
LOC: M ED 17:00
DX: F10.10 Alcohol abuse, uncomplicated (principal); Z53.21 Procedure and treatment not carried out due to patient leaving prior to being seen by health care provider

== ENCOUNTER 2023-04-18 16:05 | Emergency (ER) | payer MEDICARE ==
[~2023-04-18] VITALS: Ht 175.3 cm; Wt 92.3 kg
[2023-04-18] MEDS ORDERED: MULTIVITAMIN -ADULT INJECTION 10 ML, THIAMINE INJection 100 MG, FOLIC ACID 1 MG in NS 1... IV ONE (16:15)
[2023-04-18 16:40] LABS: BASO # 0.1 10^3/uL (0.0-0.2); BASO % 0.5 % (0.0-1.0); EOS # 0.1 10^3/uL (0.0-0.5); HEMATOCRIT 52.4 % (42.0-52.0); LYMPH # 4.6 10^3/uL (1.5-5.0); MEAN CORPUSCULAR HEMOGLOBIN 31.7 pg (27.0-33.0); MEAN CORPUSCULAR HGB CONC 34.7 g/dl (32.0-36.5); MEAN CORPUSCULAR VOLUME 91.1 fl (80.0-96.0); MONO # 0.6 10^3/uL (0.0-0.8); MONO % 6.3 % (2.0-8.0); NEUTROPHILS # 3.8 10^3/uL (1.5-8.5); NEUTROPHILS % 41.9 % (36.0-66.0); PLATELET COUNT, AUTOMATED 153 10^3/uL (150-450); RED BLOOD COUNT 5.75 10^6/uL (4.30-6.10); WHITE BLOOD COUNT 9.1 10^3/uL (4.0-10.0)
[2023-04-18 16:43] LABS: HEMOGLOBIN 18.2 g/dl (13.5-17.5)
[2023-04-18 17:07] LABS: ACETAMINOPHEN LEVEL < 2.0 UG/ML (10.0-20.0); ALBUMIN 3.7 G/DL (3.2-5.2); ALKALINE PHOSPHATASE 127 U/L (46-116); ALT/SGPT 38 U/L (7.0-40); AST/SGOT 67 U/L (<34); BILIRUBIN,DIRECT 0.2 MG/DL (<0.4); BILIRUBIN,TOTAL 0.4 MG/DL (0.3-1.2); BLOOD UREA NITROGEN 5 MG/DL (9-23); CALCIUM LEVEL 8.7 MG/DL (8.5-10.1); CARBON DIOXIDE LEVEL 22 MMOL/L (20-31); CHLORIDE LEVEL 98 MMOL/L (98-107); CREATININE FOR GFR 0.69 MG/DL (0.70-1.30); GLOMERULAR FILTRATION RATE > 60.0 (>60); GLUCOSE, FASTING 95 MG/DL (60-100); POTASSIUM SERUM 4.5 MMOL/L (3.5-5.1); SALICYLATE LEVEL < 3.0 MG/DL (<30); SODIUM LEVEL 137 MMOL/L (136-145); TOTAL PROTEIN 7.7 G/DL (5.7-8.2)
[2023-04-18 17:09] LABS: THYROID STIMULATING HORMONE 0.291 uIU/ML (0.55-4.78)
[2023-04-18] MEDS ORDERED: NICOTINE 14 MG/24 HR TRANSDERMAL TD ONE (17:20)
[2023-04-18 17:26] LABS: ETHYL ALCOHOL (ETHANOL) 0.376 % (0.000-0.010)
[2023-04-18] MEDS ORDERED: NYSTATIN OINTMENT 15 GM TOP SCH (17:35)
[2023-04-18] MEDS ORDERED: NS 1,000 ML IV ONE (18:20)
[2023-04-18] MEDS: LORazepam 2 MG TAB PO PRN ×2 (18:51→20:54)
[2023-04-18] MEDS ORDERED: OXAZEPAM 15MG CAP PO ONE (20:25)
[2023-04-18 20:26] LABS: BLOOD UREA NITROGEN 6 MG/DL (9-23); CARBON DIOXIDE LEVEL 22 MMOL/L (20-31); CHLORIDE LEVEL 101 MMOL/L (98-107); CREATININE FOR GFR 0.65 MG/DL (0.70-1.30); GLOMERULAR FILTRATION RATE > 60.0 (>60); GLUCOSE, FASTING 157 MG/DL (60-100); POTASSIUM SERUM 3.9 MMOL/L (3.5-5.1); SODIUM LEVEL 137 MMOL/L (136-145)
[2023-04-18] MEDS: NYSTATIN OINTMENT 15 GM TOP SCH ×2 (21:00→21:45)
[2023-04-18] MEDS: THIAMINE 100 MG TAB PO SCH (21:42)
[2023-04-19] MEDS ORDERED: LORazepam 2 MG TAB PO ONE (03:25)
[2023-04-19] MEDS ORDERED: MULTIVITAMINS/MINERALS THERAP 1 TAB PO SCH (09:00)
[2023-04-19] MEDS ORDERED: FOLIC ACID 1MG TAB PO SCH (09:00)
[2023-04-19] MEDS: THIAMINE 100 MG TAB PO SCH (09:06)
[2023-04-19] MEDS: NYSTATIN OINTMENT 15 GM TOP SCH (09:09)
[2023-04-19] MEDS ORDERED: MED REC IN PROGRESS XX SCH (09:55)
[2023-04-19] MEDS ORDERED: HOME MED LIST COMPLETE! XX SCH (10:25)
[2023-04-19] MEDS: LORazepam 2 MG TAB PO PRN (10:36)
[2023-04-19 11:11] VITALS: BP 158/98; TEMP 98.2; O2SAT 97
== END 2023-04-19 11:24 | disposition home or self-care (01) ==
LOC: M ED 16:05
DX: F10.129 Alcohol abuse with intoxication, unspecified (principal); F43.9 Reaction to severe stress, unspecified; M54.9 Dorsalgia, unspecified; Z87.820 Personal history of traumatic brain injury; F17.200 Nicotine dependence, unspecified, uncomplicated; Z79.899 Other long term (current) drug therapy
CPT/HCPCS: 80048; 80076; 80143; 82077; 84443; 85025; 87635; 93005; 96360; 96361; 99285; J3411

== ENCOUNTER 2023-06-10 21:09 | Emergency (ER) | payer MEDICARE ==
[~2023-06-10] VITALS: Ht 175.3 cm; Wt 86.4 kg
[2023-06-10 21:47] LABS: HEMATOCRIT 51.6 % (42.0-52.0); HEMOGLOBIN 18.1 g/dl (13.5-17.5); MEAN CORPUSCULAR HEMOGLOBIN 32.7 pg (27.0-33.0); MEAN CORPUSCULAR HGB CONC 35.1 g/dl (32.0-36.5); MEAN CORPUSCULAR VOLUME 93.1 fl (80.0-96.0); PLATELET COUNT, AUTOMATED 179 10^3/uL (150-450); RED BLOOD COUNT 5.54 10^6/uL (4.30-6.10); WHITE BLOOD COUNT 9.6 10^3/uL (4.0-10.0)
[2023-06-10 22:03] LABS: ACETAMINOPHEN LEVEL < 2.0 UG/ML (10.0-20.0); SALICYLATE LEVEL < 3.0 MG/DL (<30)
[2023-06-10 22:04] LABS: ALBUMIN 3.7 G/DL (3.2-5.2); ALKALINE PHOSPHATASE 120 U/L (46-116); ALT/SGPT 16 U/L (7.0-40); AST/SGOT 31 U/L (<34); BILIRUBIN,DIRECT 0.1 MG/DL (<0.4); BILIRUBIN,TOTAL 0.3 MG/DL (0.3-1.2); BLOOD UREA NITROGEN 6 MG/DL (9-23); CALCIUM LEVEL 8.7 MG/DL (8.5-10.1); CARBON DIOXIDE LEVEL 25 MMOL/L (20-31); CHLORIDE LEVEL 106 MMOL/L (98-107); CREATININE FOR GFR 0.73 MG/DL (0.70-1.30); GLOMERULAR FILTRATION RATE > 60.0 (>60); GLUCOSE, FASTING 122 MG/DL (60-100); POTASSIUM SERUM 4.1 MMOL/L (3.5-5.1); SODIUM LEVEL 141 MMOL/L (136-145); TOTAL PROTEIN 7.6 G/DL (5.7-8.2)
[2023-06-10 22:07] LABS: THYROID STIMULATING HORMONE 0.457 uIU/ML (0.55-4.78)
[2023-06-10] MEDS ORDERED: NICOTINE 21MG/24HR 1 EA TRANSDERMAL TD ONE (23:15)
[2023-06-11 05:33] LABS: AMPHETAMINES LEVEL URINE NEGATIVE (NEGATIVE); BARBITURATES URINE NEGATIVE (NEGATIVE); BENZODIAZEPINES URINE NEGATIVE (NEGATIVE); CANNABINOIDS URINE NEGATIVE (NEGATIVE); COCAINE METABOLITE URINE NEGATIVE (NEGATIVE); METHADONE URINE NEGATIVE (NEGATIVE); OPIATES URINE NEGATIVE (NEGATIVE); PHENCYCLIDINE URINE NEGATIVE (NEGATIVE)
[2023-06-11] MEDS ORDERED: LORazepam 2 MG TAB PO PRN (08:10)
[2023-06-11] MEDS ORDERED: FOLIC ACID 1MG TAB PO SCH (09:00)
[2023-06-11] MEDS ORDERED: MULTIVITAMINS/MINERALS THERAP 1 TAB PO SCH (09:00)
[2023-06-11] MEDS ORDERED: THIAMINE 100 MG TAB PO SCH (09:00)
[2023-06-11 12:08] VITALS: BP 166/90; TEMP 97.4; O2SAT 98
== END 2023-06-11 13:20 | disposition home or self-care (01) ==
LOC: M ED 21:10
DX: F10.129 Alcohol abuse with intoxication, unspecified (principal); F41.9 Anxiety disorder, unspecified; M54.9 Dorsalgia, unspecified; F17.200 Nicotine dependence, unspecified, uncomplicated; Z87.820 Personal history of traumatic brain injury; Z79.899 Other long term (current) drug therapy

== ENCOUNTER 2023-06-30 19:23 | Emergency (ER) | payer MEDICARE ==
[~2023-06-30] VITALS: Ht 172.7 cm; Wt 92.0 kg
[2023-06-30 20:05] LABS: HEMATOCRIT 48.8 % (42.0-52.0); MEAN CORPUSCULAR HEMOGLOBIN 32.9 pg (27.0-33.0); MEAN CORPUSCULAR HGB CONC 34.8 g/dl (32.0-36.5); MEAN CORPUSCULAR VOLUME 94.4 fl (80.0-96.0); PLATELET COUNT, AUTOMATED 319 10^3/uL (150-450); RED BLOOD COUNT 5.17 10^6/uL (4.30-6.10); WHITE BLOOD COUNT 10.6 10^3/uL (4.0-10.0)
[2023-06-30] MEDS ORDERED: OXcarbazepine 150 MG TAB PO ONE (20:05)
[2023-06-30] MEDS ORDERED: NICOTINE 21MG/24HR 1 EA TRANSDERMAL TD ONE (20:05)
[2023-06-30] MEDS ORDERED: LORazepam 2 MG TAB PO ONE (20:05)
[2023-06-30] MEDS ORDERED: PHENYTOIN ER 100 MG CAP PO ONE (20:05)
[2023-06-30 20:21] LABS: SALICYLATE LEVEL < 3.0 MG/DL (<30)
[2023-06-30 20:22] LABS: ALBUMIN 3.7 G/DL (3.2-5.2); ALKALINE PHOSPHATASE 105 U/L (46-116); ALT/SGPT 57 U/L (7.0-40); AST/SGOT 80 U/L (<34); BILIRUBIN,DIRECT < 0.1 MG/DL (<0.4); BILIRUBIN,TOTAL 0.2 MG/DL (0.3-1.2); BLOOD UREA NITROGEN 7 MG/DL (9-23); CALCIUM LEVEL 8.9 MG/DL (8.5-10.1); CARBON DIOXIDE LEVEL 23 MMOL/L (20-31); CHLORIDE LEVEL 102 MMOL/L (98-107); CREATININE FOR GFR 0.72 MG/DL (0.70-1.30); GLOMERULAR FILTRATION RATE > 60.0 (>60); GLUCOSE, FASTING 129 MG/DL (60-100); SODIUM LEVEL 139 MMOL/L (136-145); TOTAL PROTEIN 7.4 G/DL (5.7-8.2)
[2023-06-30 20:24] LABS: THYROID STIMULATING HORMONE 0.378 uIU/ML (0.55-4.78)
[2023-06-30 20:54] LABS: ETHYL ALCOHOL (ETHANOL) 0.346 % (0.000-0.010)
[2023-06-30 21:21] LABS: AMPHETAMINES LEVEL URINE NEGATIVE (NEGATIVE); BARBITURATES URINE NEGATIVE (NEGATIVE); CANNABINOIDS URINE NEGATIVE (NEGATIVE); COCAINE METABOLITE URINE NEGATIVE (NEGATIVE); METHADONE URINE NEGATIVE (NEGATIVE); PHENCYCLIDINE URINE NEGATIVE (NEGATIVE)
[2023-06-30 21:22] LABS: BENZODIAZEPINES URINE NEGATIVE (NEGATIVE); OPIATES URINE NEGATIVE (NEGATIVE)
[2023-07-01] MEDS ORDERED: HOME MED LIST COMPLETE! XX SCH (05:35)
[2023-07-01] MEDS ORDERED: amLODIPine 5 MG TAB PO ONE (06:20)
[2023-07-01] MEDS ORDERED: ESCITALOPRAM OXALATE 10 MG TAB (LEXAPRO) PO ONE (06:20)
[2023-07-01 06:27] VITALS: BP 147/78
[2023-07-01] MEDS ORDERED: LORazepam 2 MG TAB PO STA (07:41)
[2023-07-01] MEDS ORDERED: PHENYTOIN ER 100 MG CAP PO SCH (09:00)
[2023-07-01] MEDS ORDERED: OXcarbazepine 150 MG TAB PO SCH (09:00)
[2023-07-01 10:17] VITALS: BP 161/77; TEMP 98.6; O2SAT 96
[2023-07-02] MEDS ORDERED: ESCITALOPRAM OXALATE 10 MG TAB (LEXAPRO) PO SCH (09:00)
[2023-07-02] MEDS ORDERED: amLODIPine 5 MG TAB PO SCH (09:00)
== END 2023-07-01 10:44 | disposition home or self-care (01) ==
LOC: M ED 19:23
DX: F10.129 Alcohol abuse with intoxication, unspecified (principal); R45.851 Suicidal ideations; F17.200 Nicotine dependence, unspecified, uncomplicated; Z79.811 Long term (current) use of aromatase inhibitors; Z79.899 Other long term (current) drug therapy

== ENCOUNTER 2024-06-01 18:51 | Emergency (ER) | payer SELFPAY, MEDICAID ==
[~2024-06-01 18:51] MED LIST changes: +FLUO-290 PO; -FLUO10CA18 PO
[2024-06-01] MEDS ORDERED: HOME MED LIST COMPLETE! XX SCH (20:15)
[2024-06-01] MEDS: THIAMINE 100 MG TAB PO SCH (21:00)
[2024-06-01] MEDS: FOLIC ACID 1MG TAB PO SCH (21:16)
[2024-06-01 21:39] LABS: HEMATOCRIT 43.9 % (42.0-52.0); MEAN CORPUSCULAR HEMOGLOBIN 33.8 pg (27.0-33.0); MEAN CORPUSCULAR HGB CONC 34.2 g/dl (32.0-36.5); MEAN CORPUSCULAR VOLUME 98.9 fl (80.0-96.0); PLATELET COUNT, AUTOMATED 251 10^3/uL (150-450); RED BLOOD COUNT 4.44 10^6/uL (4.30-6.10); WHITE BLOOD COUNT 7.2 10^3/uL (4.0-10.0)
[2024-06-01 22:06] LABS: ETHYL ALCOHOL (ETHANOL) 0.235 % (0.000-0.010)
[2024-06-01 22:07] LABS: ALBUMIN 3.1 G/DL (3.2-5.2); ALKALINE PHOSPHATASE 114 U/L (46-116); ALT/SGPT 26 U/L (7.0-40); AST/SGOT 23 U/L (<34); BILIRUBIN,DIRECT < 0.1 MG/DL (<0.4); BILIRUBIN,TOTAL < 0.2 MG/DL (0.3-1.2); BLOOD UREA NITROGEN 8 MG/DL (9-23); CALCIUM LEVEL 8.7 MG/DL (8.5-10.1); CARBON DIOXIDE LEVEL 22 MMOL/L (20-31); CHLORIDE LEVEL 110 MMOL/L (98-107); CREATININE FOR GFR 0.68 MG/DL (0.70-1.30); GLOMERULAR FILTRATION RATE > 60.0 (>60); GLUCOSE, FASTING 97 MG/DL (60-100); POTASSIUM SERUM 3.3 MMOL/L (3.5-5.1); SALICYLATE LEVEL < 3.0 MG/DL (<30); SODIUM LEVEL 140 MMOL/L (136-145); TOTAL PROTEIN 6.8 G/DL (5.7-8.2)
[2024-06-01 22:09] LABS: THYROID STIMULATING HORMONE 1.141 uIU/ML (0.55-4.78)
[2024-06-02 05:11] LABS: AMPHETAMINES LEVEL URINE NEGATIVE (NEGATIVE); BARBITURATES URINE NEGATIVE (NEGATIVE); BENZODIAZEPINES URINE NEGATIVE (NEGATIVE); CANNABINOIDS URINE NEGATIVE (NEGATIVE); COCAINE METABOLITE URINE NEGATIVE (NEGATIVE); METHADONE URINE NEGATIVE (NEGATIVE); OPIATES URINE NEGATIVE (NEGATIVE); PHENCYCLIDINE URINE NEGATIVE (NEGATIVE)
[2024-06-02] MEDS: NICOTINE 21MG/24HR 1 EA TRANSDERMAL TD ONE ×2 (05:20→10:55)
[2024-06-02] MEDS: LORazepam 2 MG TAB PO PRN (06:40)
[2024-06-02] MEDS: MULTIVITAMINS/MINERALS THERAP 1 TAB PO SCH (09:49)
[2024-06-02 10:43] VITALS: BP 175/96; TEMP 97.7; O2SAT 98
== END 2024-06-02 11:00 | disposition short-term general hospital (02) ==
LOC: M ED 18:51
DX: F10.10 Alcohol abuse, uncomplicated (principal); Z79.899 Other long term (current) drug therapy

== ENCOUNTER 2024-06-20 00:44 | Emergency (ER) | payer OTHER, MEDICAID ==
[~2024-06-20] VITALS: Ht 167.6 cm; Wt 85.0 kg
[2024-06-20 03:17] LABS: HEMATOCRIT 49.8 % (42.0-52.0); MEAN CORPUSCULAR HEMOGLOBIN 33.1 pg (27.0-33.0); MEAN CORPUSCULAR HGB CONC 34.1 g/dl (32.0-36.5); MEAN CORPUSCULAR VOLUME 96.9 fl (80.0-96.0); PLATELET COUNT, AUTOMATED 151 10^3/uL (150-450); RED BLOOD COUNT 5.14 10^6/uL (4.30-6.10); WHITE BLOOD COUNT 7.6 10^3/uL (4.0-10.0)
[2024-06-20 03:35] LABS: SALICYLATE LEVEL < 3.0 MG/DL (<30)
[2024-06-20 04:38] LABS: ALBUMIN 3.5 G/DL (3.2-5.2); ALKALINE PHOSPHATASE 102 U/L (46-116); ALT/SGPT 25 U/L (7.0-40); AST/SGOT 31 U/L (<34); BILIRUBIN,DIRECT < 0.1 MG/DL (<0.4); BILIRUBIN,TOTAL 0.2 MG/DL (0.3-1.2); BLOOD UREA NITROGEN < 5 MG/DL (9-23); CALCIUM LEVEL 9.1 MG/DL (8.5-10.1); CARBON DIOXIDE LEVEL 24 MMOL/L (20-31); CHLORIDE LEVEL 109 MMOL/L (98-107); CREATININE FOR GFR 0.52 MG/DL (0.70-1.30); GLOMERULAR FILTRATION RATE > 60.0 (>60); GLUCOSE, FASTING 95 MG/DL (60-100); POTASSIUM SERUM 3.7 MMOL/L (3.5-5.1); SODIUM LEVEL 142 MMOL/L (136-145); THYROID STIMULATING HORMONE 0.324 uIU/ML (0.55-4.78); TOTAL PROTEIN 7.5 G/DL (5.7-8.2)
[2024-06-20] MEDS: MULTIVITAMINS/MINERALS THERAP 1 TAB PO SCH (09:39)
[2024-06-20] MEDS: FOLIC ACID 1MG TAB PO SCH (09:39)
[2024-06-20] MEDS: THIAMINE 100 MG TAB PO SCH (09:39)
[2024-06-20 09:59] LABS: AMPHETAMINES LEVEL URINE NEGATIVE (NEGATIVE); BARBITURATES URINE NEGATIVE (NEGATIVE); BENZODIAZEPINES URINE NEGATIVE (NEGATIVE); COCAINE METABOLITE URINE NEGATIVE (NEGATIVE); METHADONE URINE NEGATIVE (NEGATIVE); OPIATES URINE NEGATIVE (NEGATIVE)
[2024-06-20 10:00] LABS: CANNABINOIDS URINE NEGATIVE (NEGATIVE); PHENCYCLIDINE URINE NEGATIVE (NEGATIVE)
[2024-06-20] MEDS: LORazepam 2 MG TAB PO PRN (10:16)
[2024-06-20 10:25] VITALS: BP 189/100
[2024-06-20] MEDS: METOPROLOL TART 50 MG TAB PO ONE (10:25)
[2024-06-20] MEDS: LOPERAMIDE 2 MG CAPLET PO ONE (10:25)
[2024-06-20 11:22] VITALS: TEMP 98.4; O2SAT 95
[2024-06-20 11:23] VITALS: BP 158/89
== END 2024-06-20 12:26 | disposition home or self-care (01) ==
LOC: M ED 00:44
DX: F10.120 Alcohol abuse with intoxication, uncomplicated (principal); F10.130 Alcohol abuse with withdrawal, uncomplicated; Z79.899 Other long term (current) drug therapy

== ENCOUNTER 2024-09-19 13:15 | Emergency (ER) | payer MEDICARE, MEDICAID ==
[~2024-09-19] VITALS: Ht 165.1 cm; Wt 79.5 kg
[2024-09-19] MEDS: MULTIVITAMINS/MINERALS THERAP 1 TAB PO SCH (09:00)
[2024-09-19] MEDS: FOLIC ACID 1MG TAB PO SCH (09:00)
[2024-09-19] MEDS: NICOTINE 21MG/24HR 1 EA TRANSDERMAL TD ONE (14:00)
[2024-09-19 14:19] LABS: HEMATOCRIT 51.4 % (42.0-52.0); HEMOGLOBIN 17.2 g/dl (13.5-17.5); MEAN CORPUSCULAR HEMOGLOBIN 31.4 pg (27.0-33.0); MEAN CORPUSCULAR HGB CONC 33.5 g/dl (32.0-36.5); PLATELET COUNT, AUTOMATED 208 10^3/uL (150-450); RED BLOOD COUNT 5.47 10^6/uL (4.30-6.10); WHITE BLOOD COUNT 7.4 10^3/uL (4.0-10.0)
[2024-09-19 14:33] LABS: AMPHETAMINES LEVEL URINE NEGATIVE (NEGATIVE); BARBITURATES URINE NEGATIVE (NEGATIVE); BENZODIAZEPINES URINE NEGATIVE (NEGATIVE); CANNABINOIDS URINE NEGATIVE (NEGATIVE); COCAINE METABOLITE URINE NEGATIVE (NEGATIVE); METHADONE URINE NEGATIVE (NEGATIVE); OPIATES URINE NEGATIVE (NEGATIVE); PHENCYCLIDINE URINE NEGATIVE (NEGATIVE)
[2024-09-19 14:37] LABS: SALICYLATE LEVEL < 3.0 MG/DL (<30)
[2024-09-19 15:02] LABS: ALBUMIN 3.7 G/DL (3.2-5.2); ALKALINE PHOSPHATASE 93 U/L (40-129); ALT/SGPT 44 U/L (7.0-40); AST/SGOT 47 U/L (<34); BILIRUBIN,DIRECT < 0.1 MG/DL (<0.4); BILIRUBIN,TOTAL 0.3 MG/DL (0.3-1.2); BLOOD UREA NITROGEN < 5 MG/DL (9-23); CALCIUM LEVEL 9.6 MG/DL (8.5-10.1); CARBON DIOXIDE LEVEL 25 MMOL/L (20-31); CHLORIDE LEVEL 104 MMOL/L (98-107); CREATININE FOR GFR 0.58 MG/DL (0.70-1.30); ETHYL ALCOHOL (ETHANOL) 0.328 % (0.000-0.010); GLOMERULAR FILTRATION RATE > 60.0 (>60); GLUCOSE, FASTING 92 MG/DL (60-100); POTASSIUM SERUM 4.1 MMOL/L (3.5-5.1); SODIUM LEVEL 140 MMOL/L (136-145); THYROID STIMULATING HORMONE 0.238 uIU/ML (0.55-4.78); TOTAL PROTEIN 8.2 G/DL (5.7-8.2)
[2024-09-19] MEDS: LORazepam 2 MG TAB PO PRN (16:29)
[2024-09-19 18:51] VITALS: TEMP 98.7
[2024-09-19] MEDS ORDERED: HOME MED LIST COMPLETE! XX SCH (19:20)
[2024-09-19] MEDS: PHENYTOIN ER 100 MG CAP PO SCH (20:01)
[2024-09-19] MEDS: OXcarbazepine 150 MG TAB PO SCH (20:01)
[2024-09-19] MEDS: THIAMINE 100 MG TAB PO SCH (20:02)
[2024-09-19 22:35] VITALS: BP 172/84; O2SAT 93
[2024-09-20] MEDS ORDERED: amLODIPine 5 MG TAB PO SCH (09:00)
== END 2024-09-20 01:00 | disposition home or self-care (01) ==
LOC: M ED 13:15
DX: F10.129 Alcohol abuse with intoxication, unspecified (principal); F32.A Depression, unspecified; K21.9 Gastro-esophageal reflux disease without esophagitis; Z87.820 Personal history of traumatic brain injury; Z79.899 Other long term (current) drug therapy

== ENCOUNTER 2025-01-09 17:59 | Emergency (ER) | payer MEDICARE, MEDICAID ==
[~2025-01-09] VITALS: Ht 167.6 cm; Wt 84.0 kg
[2025-01-09 18:49] LABS: HEMATOCRIT 48.3 % (42.0-52.0); HEMOGLOBIN 16.4 g/dl (13.5-17.5); MEAN CORPUSCULAR HEMOGLOBIN 31.6 pg (27.0-33.0); MEAN CORPUSCULAR VOLUME 93.1 fl (80.0-96.0); PLATELET COUNT, AUTOMATED 437 10^3/uL (150-450); RED BLOOD COUNT 5.19 10^6/uL (4.30-6.10); WHITE BLOOD COUNT 8.4 10^3/uL (4.0-10.0)
[2025-01-09 18:56] LABS: AMPHETAMINES LEVEL URINE NEGATIVE (NEGATIVE); BARBITURATES URINE NEGATIVE (NEGATIVE); CANNABINOIDS URINE NEGATIVE (NEGATIVE); PHENCYCLIDINE URINE NEGATIVE (NEGATIVE)
[2025-01-09 18:57] LABS: BENZODIAZEPINES URINE NEGATIVE (NEGATIVE); COCAINE METABOLITE URINE NEGATIVE (NEGATIVE); METHADONE URINE NEGATIVE (NEGATIVE); OPIATES URINE NEGATIVE (NEGATIVE)
[2025-01-09 19:02] LABS: SALICYLATE LEVEL < 3.0 MG/DL (<30)
[2025-01-09 19:03] LABS: ALBUMIN 3.8 G/DL (3.2-5.2); ALKALINE PHOSPHATASE 92 U/L (40-129); ALT/SGPT 30 U/L (7.0-40); AST/SGOT 26 U/L (<34); BILIRUBIN,DIRECT < 0.1 MG/DL (<0.4); BILIRUBIN,TOTAL 0.2 MG/DL (0.3-1.2); BLOOD UREA NITROGEN 6 MG/DL (9-23); CALCIUM LEVEL 9.1 MG/DL (8.5-10.1); CARBON DIOXIDE LEVEL 22 MMOL/L (20-31); CHLORIDE LEVEL 104 MMOL/L (98-107); CREATININE FOR GFR 0.59 MG/DL (0.70-1.30); GLOMERULAR FILTRATION RATE > 90.0 (>60); GLUCOSE, FASTING 107 MG/DL (60-100); POTASSIUM SERUM 4.2 MMOL/L (3.5-5.1); SODIUM LEVEL 137 MMOL/L (136-145); TOTAL PROTEIN 7.7 G/DL (5.7-8.2)
[2025-01-09 19:05] LABS: THYROID STIMULATING HORMONE 0.416 uIU/ML (0.55-4.78)
[2025-01-09 19:34] LABS: ETHYL ALCOHOL (ETHANOL) 0.367 % (0.000-0.010)
[2025-01-09] MEDS: levETIRAcetam 250MG TABLET (KEPPRA) PO ONE (21:25)
[2025-01-10 06:34] VITALS: BP 158/97; TEMP 97.2; O2SAT 97
[2025-01-10 08:47] VITALS: BP 158/97
[2025-01-10] MEDS: OXcarbazepine 150 MG TAB PO SCH (08:47)
[2025-01-10] MEDS: amLODIPine 5 MG TAB PO SCH (08:47)
[2025-01-10] MEDS: levETIRAcetam 250MG TABLET (KEPPRA) PO SCH (08:47)
== END 2025-01-10 10:10 | disposition home or self-care (01) ==
LOC: M ED 17:59
DX: F10.129 Alcohol abuse with intoxication, unspecified (principal); F32.9 Major depressive disorder, single episode, unspecified; K21.9 Gastro-esophageal reflux disease without esophagitis; Z79.899 Other long term (current) drug therapy

== ENCOUNTER 2025-03-18 21:10 | Emergency (ER) | payer MEDICARE, MEDICAID ==
[~2025-03-18] VITALS: Ht 165.1 cm; Wt 75.0 kg
[~2025-03-18 21:10] MED LIST changes: +LEVE500T5 PO
[2025-03-18 21:57] LABS: AMPHETAMINES LEVEL URINE NEGATIVE (NEGATIVE); BARBITURATES URINE NEGATIVE (NEGATIVE); BENZODIAZEPINES URINE NEGATIVE (NEGATIVE); CANNABINOIDS URINE NEGATIVE (NEGATIVE); COCAINE METABOLITE URINE NEGATIVE (NEGATIVE); METHADONE URINE NEGATIVE (NEGATIVE); OPIATES URINE NEGATIVE (NEGATIVE); PHENCYCLIDINE URINE NEGATIVE (NEGATIVE)
[2025-03-18 22:00] LABS: SALICYLATE LEVEL < 3.0 MG/DL (<30)
[2025-03-18 22:07] LABS: PLATELET COUNT, AUTOMATED 121 10^3/uL (150-450)
[2025-03-18 22:29] LABS: ALT/SGPT 133 U/L (7.0-40); AST/SGOT 185 U/L (<34); CALCIUM LEVEL 9.2 MG/DL (8.5-10.1); CARBON DIOXIDE LEVEL 22 MMOL/L (20-31); CHLORIDE LEVEL 102 MMOL/L (98-107); CREATININE FOR GFR 0.66 MG/DL (0.70-1.30); ETHYL ALCOHOL (ETHANOL) 0.398 % (0.000-0.010); GLOMERULAR FILTRATION RATE > 90.0 (>60); POTASSIUM SERUM 4.1 MMOL/L (3.5-5.1); SODIUM LEVEL 139 MMOL/L (136-145)
[2025-03-19] MEDS ORDERED: LABE20TAB PO (07:52)
[2025-03-19] MEDS ORDERED: MECL-86 PO (07:52)
[2025-03-19] MEDS ORDERED: HOME MED LIST COMPLETE! XX SCH (08:05)
[2025-03-19 08:55] VITALS: BP 152/90; TEMP 97; O2SAT 96
[2025-03-19] MEDS: THIAMINE 100 MG TAB PO SCH (09:19)
[2025-03-19 09:20] VITALS: BP 152/90
[2025-03-19] MEDS: LABETALOL 200 MG TAB PO SCH (09:20)
[2025-03-19] MEDS: FOLIC ACID 1 MG TAB PO SCH (09:20)
[2025-03-19] MEDS: MULTIVITAMINS/MINERALS THERAP 1 TAB PO SCH (09:20)
[2025-03-19] MEDS: OXAZEPAM 10MG CAP PO ONE (10:02)
== END 2025-03-19 10:07 | disposition home or self-care (01) ==
LOC: M ED 21:10
DX: F10.120 Alcohol abuse with intoxication, uncomplicated (principal); F10.130 Alcohol abuse with withdrawal, uncomplicated; F32.A Depression, unspecified; Z79.899 Other long term (current) drug therapy

== ENCOUNTER 2025-04-08 17:53 | Emergency (ER) | payer MEDICARE, MEDICAID ==
[~2025-04-08 17:53] MED LIST changes: +LABE20TAB PO; +MECL-86 PO
[2025-04-08 18:43] LABS: PLATELET COUNT, AUTOMATED 454 10^3/uL (150-450)
[2025-04-08 19:11] LABS: ALT/SGPT 25 U/L (7.0-40); AST/SGOT 22 U/L (<34); CALCIUM LEVEL 8.9 MG/DL (8.5-10.1); CARBON DIOXIDE LEVEL 23 MMOL/L (20-31); CHLORIDE LEVEL 107 MMOL/L (98-107); CREATININE FOR GFR 0.75 MG/DL (0.70-1.30); GLOMERULAR FILTRATION RATE > 90.0 (>60); POTASSIUM SERUM 4.5 MMOL/L (3.5-5.1); SALICYLATE LEVEL < 3.0 MG/DL (<30); SODIUM LEVEL 145 MMOL/L (136-145)
[2025-04-08 19:16] LABS: AMPHETAMINES LEVEL URINE NEGATIVE (NEGATIVE); BARBITURATES URINE NEGATIVE (NEGATIVE); BENZODIAZEPINES URINE NEGATIVE (NEGATIVE); CANNABINOIDS URINE NEGATIVE (NEGATIVE); COCAINE METABOLITE URINE NEGATIVE (NEGATIVE); METHADONE URINE NEGATIVE (NEGATIVE); OPIATES URINE NEGATIVE (NEGATIVE); PHENCYCLIDINE URINE NEGATIVE (NEGATIVE)
[2025-04-08 19:41] LABS: ETHYL ALCOHOL (ETHANOL) 0.316 % (0.000-0.010)
[2025-04-09] MEDS ORDERED: HOME MED LIST COMPLETE! XX SCH (00:55)
[2025-04-09] MEDS: THIAMINE 100 MG TAB PO SCH (09:08)
[2025-04-09 10:47] VITALS: BP 166/87; TEMP 98.4; O2SAT 98
[2025-04-09] MEDS ORDERED: LABETALOL 100 MG TAB PO SCH (21:00)
== END 2025-04-09 10:49 | disposition home or self-care (01) ==
LOC: M ED 17:53
DX: F10.129 Alcohol abuse with intoxication, unspecified (principal); Y90.8 Blood alcohol level of 240 mg/100 ml or more; F41.9 Anxiety disorder, unspecified; M54.9 Dorsalgia, unspecified; F17.200 Nicotine dependence, unspecified, uncomplicated

== ENCOUNTER 2025-05-15 14:20 | Emergency (ER) | payer MEDICARE, MEDICAID ==
[~2025-05-15] VITALS: Ht 167.6 cm; Wt 75.0 kg
[2025-05-15 14:31] VITALS: BP 134/76; TEMP 97.5; O2SAT 95
[2025-05-15 14:47] LABS: PLATELET COUNT, AUTOMATED 237 10^3/uL (150-450)
[2025-05-15 15:11] LABS: BARBITURATES URINE NEGATIVE (NEGATIVE); COCAINE METABOLITE URINE NEGATIVE (NEGATIVE); METHADONE URINE NEGATIVE (NEGATIVE); OPIATES URINE NEGATIVE (NEGATIVE)
[2025-05-15 15:12] LABS: AMPHETAMINES LEVEL URINE NEGATIVE (NEGATIVE); BENZODIAZEPINES URINE NEGATIVE (NEGATIVE); CANNABINOIDS URINE NEGATIVE (NEGATIVE); PHENCYCLIDINE URINE NEGATIVE (NEGATIVE)
[2025-05-15 15:14] LABS: ALT/SGPT 18 U/L (7.0-40); AST/SGOT 20 U/L (<34); CALCIUM LEVEL 9.1 MG/DL (8.5-10.1); CARBON DIOXIDE LEVEL 24 MMOL/L (20-31); CHLORIDE LEVEL 104 MMOL/L (98-107); CREATININE FOR GFR 0.70 MG/DL (0.70-1.30); GLOMERULAR FILTRATION RATE > 90.0 (>60); POTASSIUM SERUM 3.9 MMOL/L (3.5-5.1); SALICYLATE LEVEL < 3.0 MG/DL (<30); SODIUM LEVEL 138 MMOL/L (136-145)
[2025-05-15 15:38] LABS: ETHYL ALCOHOL (ETHANOL) 0.250 % (0.000-0.010)
[2025-05-15] MEDS ORDERED: HOME MED LIST COMPLETE! XX SCH (20:35)
[2025-05-15] MEDS: THIAMINE 100 MG TAB PO SCH (20:51)
[2025-05-15] MEDS ORDERED: OXAZ30CA2 PO (22:53)
[2025-05-15] MEDS: OXAZEPAM 15MG CAP PO ONE (23:11)
[2025-05-16] MEDS ORDERED: FOLIC ACID 1 MG TAB PO SCH (09:00)
[2025-05-16] MEDS ORDERED: MULTIVITAMINS/MINERALS THERAP 1 TAB PO SCH (09:00)
== END 2025-05-15 23:20 | disposition home or self-care (01) ==
LOC: M ED 14:20
DX: F43.21 Adjustment disorder with depressed mood (principal); F10.129 Alcohol abuse with intoxication, unspecified; M54.9 Dorsalgia, unspecified; Z87.820 Personal history of traumatic brain injury; F41.9 Anxiety disorder, unspecified; K21.9 Gastro-esophageal reflux disease without esophagitis; F17.200 Nicotine dependence, unspecified, uncomplicated; F19.10 Other psychoactive substance abuse, uncomplicated; Z79.899 Other long term (current) drug therapy

== ENCOUNTER 2025-06-30 20:58 | Emergency (ER) | payer MEDICARE, MEDICAID ==
[~2025-06-30] VITALS: Ht 170.2 cm; Wt 90.9 kg
[~2025-06-30 20:58] MED LIST changes: +OXAZ30CA2 PO
[2025-06-30 22:14] LABS: BASO # 0.1 10^3/uL (0.0-0.2); BASO % 1.3 % (0.0-1.0); EOS # 0.2 10^3/uL (0.0-0.5); EOS % 1.4 % (0.0-3.0); LYMPH # 4.0 10^3/uL (1.5-5.0); LYMPH % 36.8 % (24.0-44.0); MONO # 0.9 10^3/uL (0.0-0.8); MONO % 8.5 % (2.0-8.0); NEUTROPHILS # 5.6 10^3/uL (1.5-8.5); NEUTROPHILS % 51.6 % (36.0-66.0); PLATELET COUNT, AUTOMATED 381 10^3/uL (150-450)
[2025-06-30 22:32] LABS: AMPHETAMINES LEVEL URINE NEGATIVE (NEGATIVE); BARBITURATES URINE NEGATIVE (NEGATIVE); BENZODIAZEPINES URINE NEGATIVE (NEGATIVE); CANNABINOIDS URINE NEGATIVE (NEGATIVE); COCAINE METABOLITE URINE NEGATIVE (NEGATIVE); METHADONE URINE NEGATIVE (NEGATIVE); OPIATES URINE NEGATIVE (NEGATIVE); PHENCYCLIDINE URINE NEGATIVE (NEGATIVE)
[2025-06-30 23:01] LABS: SALICYLATE LEVEL < 3.0 MG/DL (<30)
[2025-06-30 23:02] LABS: ALT/SGPT 14 U/L (7.0-40); AST/SGOT 24 U/L (<34); CALCIUM LEVEL 8.9 MG/DL (8.5-10.1); CARBON DIOXIDE LEVEL 25 MMOL/L (20-31); CHLORIDE LEVEL 108 MMOL/L (98-107); CREATININE FOR GFR 0.82 MG/DL (0.70-1.30); GLOMERULAR FILTRATION RATE > 90.0 (>60); OSMOLALITY SERUM 376 MOSM/KG (275-295); POTASSIUM SERUM 4.5 MMOL/L (3.5-5.1); SODIUM LEVEL 142 MMOL/L (136-145)
[2025-06-30 23:10] LABS: CPK CREATINE PHOSPHOKINASE 123 U/L (46-171); ETHYL ALCOHOL (ETHANOL) 0.328 % (0.000-0.010)
[2025-07-01 08:15] VITALS: BP 113/69; TEMP 98.2; O2SAT 100
[2025-07-01] MEDS: MULTIVITAMINS/MINERALS THERAP 1 TAB PO SCH (09:00)
[2025-07-01] MEDS: THIAMINE 100 MG TAB PO SCH (09:27)
[2025-07-01] MEDS: FOLIC ACID 1 MG TAB PO SCH (09:27)
== END 2025-07-01 09:34 | disposition home or self-care (01) ==
LOC: M ED 20:58
DX: F10.129 Alcohol abuse with intoxication, unspecified (principal); F43.21 Adjustment disorder with depressed mood; F41.9 Anxiety disorder, unspecified; K21.9 Gastro-esophageal reflux disease without esophagitis; Z87.820 Personal history of traumatic brain injury; Z79.899 Other long term (current) drug therapy